=== PATIENT | female | born 1975 | race Caucasian/White ===

== ENCOUNTER 2024-12-15 16:32 | Inpatient (IN) | payer BC ==
[~2024-12-15] VITALS: Ht 170.2 cm; Wt 65.8 kg
[2024-12-15 17:43] LABS: PLATELET COUNT (AUTO) 244 K/uL (179-408); RED BLOOD CELL COUNT(AUTO) 4.99 MIL/uL (3.63-4.92); RED CELL DISTRIBUTION WIDTH 16.1 % (12.3-17.7); WHITE BLOOD COUNT (AUTO) 5.2 K/uL (3.8-11.8)
[2024-12-15 17:52] LABS: CREATININE 0.6 mg/dL (0.6-1.3); SODIUM SERUM 143 mmol/L (136-145); UREA NITROGEN, BLOOD 13 mg/dL (7-18)
[2024-12-15 17:58] LABS: ASPARTATE AMINOTRANSFERASE 12 U/L (15-37); TOTAL PROTEIN, SERUM 7.5 g/dL (6.4-8.2)
[2024-12-15] MEDS: IV NORMAL SALINE 1000 ML BAG IV ONE (19:03)
[2024-12-16] MEDS ORDERED: NITROGLYCERIN OINT 1 GM PACKET TP ONE (01:13)
[2024-12-16] MEDS ORDERED: ASPIRIN 81 MG TAB.CHEW ONE (01:13)
[2024-12-16] MEDS: ASPIRIN 81 MG TAB.CHEW PO ONE (01:14)
[2024-12-16] MEDS ORDERED: REMEDY ESSENTIAL ZINC PASTE 113 GM TP PRN (01:15)
[2024-12-16] MEDS ORDERED: ONDANSETRON 4 MG/2 ML VIAL IV PRN (01:15)
[2024-12-16] MEDS ORDERED: MAGNESIUM HYDROXIDE 30 ML LIQUID UDC PO PRN (01:15)
[2024-12-16] MEDS: NITROGLYCERIN OINT 1 GM PACKET TP ONE (01:19)
[2024-12-16 05:13] VITALS: BP 98/64
[2024-12-16 06:54] VITALS: BP 99/55; TEMP 97.7; O2SAT 99
[2024-12-16 07:32] VITALS: BP 94/55; TEMP 97.7; O2SAT 99
[2024-12-16] MEDS: ASPIRIN 81 MG TAB.CHEW PO SCH (08:44)
[2024-12-16] MEDS: ACETAMINOPHEN 325 MG TABLET PO PRN (08:46)
[2024-12-16 10:40] VITALS: BP 100/60; TEMP 98.1; O2SAT 98
[2024-12-16] MEDS: IBUPROFEN 400 MG TABLET PO PRN (12:25)
[2024-12-16 14:59] VITALS: BP 117/72; TEMP 98.2; O2SAT 99
== END 2024-12-16 17:00 | disposition home or self-care (01) | DRG 206 ==
LOC: ER 16:40 → TELE3 12-16 01:00
PROVIDERS: ADMIT Nurse Practitioner Acute Care; ATTEND Nurse Practitioner Acute Care
DX: M94.0 Chondrocostal junction syndrome [Tietze] (principal); F41.0 Panic disorder [episodic paroxysmal anxiety]; G43.909 Migraine, unspecified, not intractable, without status migrainosus
CPT/HCPCS: 36415; 71045; 84484; 85025; 85730; 93307; A4606; A4663; G0378; J7040